=== PATIENT | female | born 1945 | race Caucasian/White ===

== ENCOUNTER 2016-10-16 10:41 | Inpatient (IN) ==
[2016-10-16] MEDS ORDERED: SODIUM CHLORIDE 0.9% 500 ML IV STA (11:39)
[2016-10-16 12:06] LABS: Basophils # 0.1 10*3/uL (0.0-0.2); Basophils % 0.3 % (0.0-0.8); Eosinophils # 0.1 10*3/uL (0.0-0.87); Eosinophils % 0.6 % (0.00-10.9); Hematocrit 33.4 VOL% (35.7-47.0); Hemoglobin 10.8 GM/DL (12.0-16.0); Immature Granulocytes % 0.7 %; Immature Granulocytes Absolute 0.11 #; Lymphocytes # 1.1 10*3/uL (1.4-4.0); Mean Corpuscular HGB Conc 32.3 GM/DL (32-36); Mean Corpuscular Hemoglobin 31 PG (27-34); Mean Corpuscular Volume 95.7 FL (87-102); Mean Platelet Volume 11.1 FL (9.6-12.0); Monocytes # 1.2 10*3/uL (0.11-0.8); Monocytes % 7.4 % (1.7-12.7); Platelet Count 267 T/CUMM (130-400); Red Blood Count 3.49 MC/CUMM (3.8-5.5); Red Cell Distribution Width 14.6 % (9.3-17.3); White Blood Count 15.5 T/CUMM (4-12)
--- NOTE | 2016-10-16 12:15 | CT Report ---
CT of the head without contrast. Indication: Mental status changes. The ventricles are normal in size and configuration. There is no mass effect, midline shift, or area of hemorrhage. No ischemic lesions are seen. The calvarium is intact. The included paranasal sinuses and the mastoid air cells are clear. Impression: No abnormality is seen. The CT exam was performed using one or more of the following dose reduction techniques: Automated exposure control, adjustment of the mA and/or kV according to patient size, or use of iterative reconstruction technique. PROCEDURE INTERPRETED AT [facility] DEPARTMENT OF RADIOLOGY Final Report Signed by: Dr. Judi Mars
--- NOTE | 2016-10-16 12:16 | XRay Report ---
Portable chest. Indication: Altered mental status. No previous study. The heart is normal in size. The pulmonary vasculature is borderline prominent. There is moderate atelectasis in the left lung base. No pneumothorax or pleural effusion. With peak hardware stabilizes a healed fracture of left proximal humerus. Impression: Moderate left basilar atelectasis. Borderline venous congestion. PROCEDURE INTERPRETED AT [facility] DEPARTMENT OF RADIOLOGY Final Report Signed by: Dr. Judi Mars
[2016-10-16 12:33] LABS: Albumin 3.3 G/DL (3.4-5.0); Bilirubin,Total 0.5 MG/DL (0.2-1.0); Osmolality,Calculated 279.5 MOS/KG (273-304); Potassium 3.6 MMOL/L (3.5-5.1); Total Protein 6.9 G/DL (6.4-8.3)
[2016-10-16 12:36] LABS: Calcium 14.4 MG/DL (8.5-10.1)
[2016-10-16] MEDS ORDERED: SODIUM CHLORIDE 0.9% 1,000 ML IV STA (12:51)
--- NOTE | 2016-10-16 12:54 | Emergency Department Note ---
Kirk Jeronimo Gwan, am scribing for, and in the presence of, Toney Gannon MD 11:21 . Teressa Jeronimo James D, MD, personally performed the services described in this documentation, ascribed by Meera Bradley in my presence, and it is both accurate and complete . Arrival - Arrival Chief Complaint: Altered Mental Status Stated Complaint: confusion/hallucination ED Nursing Triage Note: Hallucinations and confusion onset x few weeks - worse last night - family states that she has been seeing Dr Graham and Dr shah and has new DX of parkinson and was placed on new meds x 3 weeks ago Mode of Arrival: Wheelchair Limitations: Altered Mental Status Source: Patient, Family, Old Records Reviewed, RN Notes Reviewed - History of Present Illness HPI Narrative: Patient is a 71 y/o female, with a hx of dementia, visual hallucinations and Parkinson's, who presents to the ED with family with a c/o hallucinations and confusion with an onset "a few weeks" ago. During exam, pt was calm and responsive to verbal commands. Family stated that pt's sxs began to worsen last night prompting their visit to the ED today for further evaluation. Family confirmed that pt was recently dx with Parkinson's and began taking new medications Carbidopa Levodopa 3 weeks ago. Patient is followed by Dr. Graham and Dr. Shah. Family denies that pt is having auditory hallucinations or having any fever. Family confirmed that she has been battleing with insurance causing her to halt further medication attention. Onset (ago): week(s) Consistency: constant Severity: moderate Date of Last Menstrual Period: rubén Allergies/Adverse Reactions: Allergies Allergy/AdvReac Type Severity Reaction Status Date / Time Penicillins Allergy RASH Verified 10/16/16 10:49 Home Medications: Home Medications Medication Instructions Recorded Confirmed Type Carbidopa/Levodopa 25-100 [Sinemet 1 tablet PO TID 10/16/16 10/16/16 History 25-100] Citalopram [CeleXA] 40 mg PO QAM 10/16/16 10/16/16 History [place] ER Tab 450 mg PO QAM 10/16/16 10/16/16 History Losartan Potassium 100 mg PO QAM 10/16/16 10/16/16 History OLANZapine [Olanzapine] 15 mg PO QAM 10/16/16 10/16/16 History clonazePAM TAB [KlonoPIN] 0.5 mg PO TID 10/16/16 10/16/16 History Review of System - Review of System 12 point system: reviewed and no additional remarkable complaints except as stated - Review of System Constitutional: Absent: chills, fever Eyes: Absent: discharge, vision change Head/Ears/Nose/Throat: Absent: earache, nasal drainage Respiratory: Absent: cough Cardiovascular: Absent: chest pain, palpitations Gastrointestinal: Absent: abdominal pain, nausea, diarrhea Genitourinary female: Absent: dysuria Musculoskeletal: Absent: arm pain, back pain, leg pain, neck pain Neurological: Present: as per HPI, confusion Psychiatric: Present: as per HPI, visual hallucinations Medical,Surgical,& Family Hx - Medical History Cardio: History of: Hypertension Psychological: History of: Bipolar Disorder Neurology: History of: Parkinson's Disease - Social History Smoking Status: Never smoker Frequency of Alcohol Use: None Type of Drug Use: None Exam Physical Examination: GENERAL: This is a white female in no apparent distress. Patient is calm and follows all verbal commands. VITAL SIGNS: HEENT: Head is normocephalic and atraumatic. Pupils are equally round and reactive to light. Extraocular movement are intact. Oropharynx is benign with dry mucous membranes. NECK: Neck is soft and supple without tenderness. There are no masses. There is no lymphadenopathy. LUNGS: Lungs are clear to auscultation bilaterally. Chest rises symmetrically. There is no chest wall tenderness. CV: Heart is regular rate and rhythm without murmurs, rubs, or gallops. ABDOMEN: Abdomen is soft, non-tender to palpation. There are no abnormal masses palpated. There is no organomegaly. Bowel sounds are present and active. SKIN: Skin is warm and dry. No rash. EXTREMITIES: Patient has full range of motion without tenderness. There is no pedal edema. NEUROLOGIC: Awake, alert, and oriented x4. Cranial nerves II through XII are grossly intact. There are no motorsensory deficits. PSYCHIATRIC: Normal affect. Normal mood. Vital Signs: Vital Signs Temperature 98.7 F 10/16/16 11:10 Pulse Rate 65 10/16/16 13:30 Respiratory Rate 20 10/16/16 13:30 Blood Pressure 168/89 10/16/16 13:30 O2 Sat by Pulse Oximetry 96 10/16/16 13:30 Course Course Narrative: Patient was given IV fluid boluses while in the emergency department. - Consultations Consultation #1: Discussed with Dr. Shah. Patient will be admitted to his service. Initial orders written for him. Care will be assumed by him once the patient arrives on the tony. Time: 12:52 Results - Labs CBC & BMP: 10/16/16 11:54 10/16/16 11:54 Lab Results: I have reviewed the patients labs Labs: Laboratory Tests 10/16/16 11:54 WBC 15.5 H RBC 3.49 L Hgb 10.8 L Hct 33.4 L Plt Count 267 Neut % (Auto) 84.0 H Lymph % (Auto) 7.0 L Neut # (Auto) 13.0 H Lymph # (Auto) 1.1 L [place] # (Auto) 1.2 H Laboratory Tests 10/16/16 11:54 Sodium 139 Potassium 3.6 Chloride 106 Carbon Dioxide 28 BUN 21 H Creatinine 2.90 H Calcium 14.4 H* ALT 10 L Albumin 3.3 L Globulin 3.6 H Albumin/Globulin Ratio 0.9 L Laboratory Tests 10/16/16 11:54 Calcium 14.4 H* Albumin 3.3 L Laboratory Tests 10/16/16 11:54 [place] 1.5 H Laboratory Tests 10/16/16 12:54 Urine Opiates Screen Negative Ur Barbiturates Screen Negative Ur Phencyclidine Scrn Negative U Amphetamine/Methamph Negative U Benzodiazepines Scrn Negative U Cocaine Metab Screen Negative U Cannabinoids Screen Negative Laboratory Tests 10/16/16 11:39 Urine pH 7.0 Ur Specific [place] 1.008 Urine Urobilinogen < 2.0 H Urine Leukocytes Moderate H Urine RBC 1 Urine WBC 20 Hyaline Casts 1 Laboratory Tests 10/16/16 12:51 PTH Intact < 2.5 L - Diagnostic Findings Procedure: Chest x-ray: image reviewed by me (No infiltrates, no pleural effusions), CT: image reviewed by me (CT head: No acute intracranial lesion or hemorrhage.) Disposition Clinical Impression: Altered mental status, Hypercalcemia, Parkinsons disease, Renal failure Case discussed with: patient, patient's family Disposition: Still a Patient Condition: Stable Time of Disposition: 12:52
[2016-10-16 12:57] LABS: Apearance,Urine CLEAR (Clear); Bacteria,Urine Occasional /HPF (Few); Bilirubin,Urine Negative (Negative); Blood, Urine Negative (Negative); Glucose,Urine (UA) Negative (Negative); Hyaline Casts,Urine 1 /LPF (0-3); Ketones,Urine Negative (Negative); Nitrite,Urine Negative (Negative); Protein,Urine Negative; RBC,Urine 1 /HPF (0-4); Squamous Epithelial Cell,Urine Occasional /HPF (0-10); Urine Color Yellow (Yellow); Urine Specific Gravity 1.008 (1.001-1.035); Urine Urobilinogen < 2.0 EU/DL (0.2-1.0); WBC,Urine 20 /HPF (0-6)
[2016-10-16 13:11] LABS: Barbiturates Screen,Urine Negative (Negative); Benzodiazepines Screen,Urine Negative (Negative); Cannabinoid Screen,Urine Negative (Negative); Opiate Screen,Urine Negative (Negative); Phencyclidine Screen,Urine Negative (Negative)
[2016-10-16] MEDS ORDERED: ONDANSETRON 4 MG/2 ML VIAL IV PRN (14:38)
[2016-10-16] MEDS: SODIUM CHLORIDE 0.9% 1,000 ML IV SCH ×2 (14:49→23:05)
--- NOTE | 2016-10-16 17:12 | EKG Report ---
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
[2016-10-16 19:15] LABS: Calcium 12.9 MG/DL (8.5-10.1); Osmolality,Calculated 286.1 MOS/KG (273-304); Potassium 3.6 MMOL/L (3.5-5.1)
[2016-10-16] MEDS: DOCUSATE SODIUM 100 MG CAPSULE PO SCH (21:02)
[2016-10-16] MEDS: ACETAMINOPHEN 325 MG TABLET PO PRN (21:23)
[2016-10-17 05:08] LABS: Basophils # 0.1 10*3/uL (0.0-0.2); Basophils % 0.4 % (0.0-0.8); Eosinophils # 0.3 10*3/uL (0.0-0.87); Eosinophils % 2.2 % (0.00-10.9); Hematocrit 30.4 VOL% (35.7-47.0); Hemoglobin 9.6 GM/DL (12.0-16.0); Immature Granulocytes % 0.7 %; Immature Granulocytes Absolute 0.09 #; Lymphocytes # 1.2 10*3/uL (1.4-4.0); Lymphocytes % 8.9 % (21.3-54.2); Mean Corpuscular HGB Conc 31.6 GM/DL (32-36); Mean Corpuscular Hemoglobin 31 PG (27-34); Mean Corpuscular Volume 96.8 FL (87-102); Mean Platelet Volume 11.5 FL (9.6-12.0); Monocytes % 7.3 % (1.7-12.7); Neutrophils # 11.1 10*3/uL (1.4-7.4); Neutrophils % 80.5 % (38.7-73.9); Platelet Count 250 T/CUMM (130-400); Red Blood Count 3.14 MC/CUMM (3.8-5.5); Red Cell Distribution Width 14.5 % (9.3-17.3); White Blood Count 13.8 T/CUMM (4-12)
[2016-10-17 06:06] LABS: Calcium 12.4 MG/DL (8.5-10.1); Osmolality,Calculated 290.7 MOS/KG (273-304); Potassium 3.4 MMOL/L (3.5-5.1)
[2016-10-17 06:20] LABS: Albumin 2.9 G/DL (3.4-5.0); Bilirubin,Total 0.4 MG/DL (0.2-1.0); Calcium 11.9 MG/DL (8.5-10.1); Osmolality,Calculated 288.8 MOS/KG (273-304); Potassium 3.3 MMOL/L (3.5-5.1); Total Protein 5.3 G/DL (6.4-8.3)
--- NOTE | 2016-10-17 06:51 | Family Practice History&Phys ---
Assessment and Plan (1) [place] toxicity Status: Acute Assessment and plan: 10/16/2016: We are hydrating her at present. Hopefully this will have lithium levels that Current Visit: Yes (2) Hypoparathyroidism Status: Acute Assessment and plan: 10/16/2016: I suspect this is low secondary to the elevated calcium Current Visit: Yes (3) Hypokalemia Status: Acute Assessment and plan: 10/16/2016: We will supplement this as directed per protocol Current Visit: Yes (4) Altered mental status Status: Acute Assessment and plan: 10/16/2016: This is a metabolic problem/encephalopathy Current Visit: Yes (5) Hypercalcemia Status: Acute Assessment and plan: 10/16/2016: Hopefully hydration will bring this down to a high normal Current Visit: Yes (6) Parkinsons disease Status: Acute Current Visit: Yes (7) Renal failure Status: Acute Assessment and plan: 10/16/2016: I will get renal consult. She has not had an acute elevation of creatinine in the past Current Visit: Yes History of Present Illness History of present illness: Ms. Vazquez is a 71 year old female Patient is a 71 y/o female, with a hx of dementia, visual hallucinations and Parkinson's, who presents to the ED with family with a c/o confusion and hallucinations with an onset "a few weeks" ago. Unable to get a good history from her. Was unable to answer my questions, although she was calm and slowly responsive she was talking about her . No family was present, but according to the ER they stated that pt's sxs began to worsen last night prompting their visit to the ED today for further evaluation. She apparently has been recently dx with Parkinson's and began taking new medications Carbidopa Levodopa 3 weeks ago. Patient is followed by myself and Dr. Alyson Mejia. Apparently there have have been some insurance issues per ER physician. In my clinic when I saw her several months ago for the first time, it was noted that her creatinine was normal and therefore she is in acute renal failure. She also had normal BMP otherwise including calcium. Is clearly lithium toxic at this time with the above altered mental status. She also has slight leukocytosis, which could be leukemoid reaction. Her chest x-ray was normal. Will consider antibiotics in the morning if she is febrile and on the white count is still up. Her PTH is low suggesting that this is not hyperparathyroidism. We are repeating a lab in the morning I am going to go ahead and get a renal consult as mentioned and get Dr. Alyson Mejia on board. Home Medications Medication Instructions Recorded Confirmed Type Carbidopa/Levodopa 25-100 [Sinemet 1 tablet PO TID 10/16/16 10/16/16 History 25-100] Citalopram [CeleXA] 40 mg PO QAM 10/16/16 10/16/16 History [place] ER Tab 450 mg PO QAM 10/16/16 10/16/16 History Losartan Potassium 100 mg PO QAM 10/16/16 10/16/16 History OLANZapine [Olanzapine] 15 mg PO QAM 10/16/16 10/16/16 History clonazePAM TAB [KlonoPIN] 0.5 mg PO TID 10/16/16 10/16/16 History Allergies Allergy/AdvReac Type Severity Reaction Status Date / Time Penicillins Allergy RASH Verified 10/16/16 10:49 12 point system: reviewed and no additional remarkable complaints except as stated (Please see H&P. Unable to get full review of systems due to patient's mental state) Medical,Surgical,& Family Hx - Medical History Cardio: History of: Hypertension Psychological: History of: Bipolar Disorder Neurology: History of: Parkinson's Disease - Family History Family History: Reports;: Family Diabetes, Family Hypertension - Social History Smoking Status: Former smoker Frequency of Alcohol Use: Rarely Type of Drug Use: None Exam - Constitutional Vitals: Period Temp Pulse Resp BP Sys/[place] Pulse Ox Last 24 Hr 97.9 F-98.7 F 46-65 18-22 95-181/54-89 87-99 Exam: Generally fairly well-developed lady physically. She is alert but unable to give a good history. HEENT pupils are equal reactive neck is supple trachea midline [place]ia regular rate is regular at present no gallop or rub Lungs generally clear no shortness of breath is apparent Abdomen soft nondistended patient states that she is not having any abdominal when I palpate her Extremities no clubbing cyanosis edema Neurologic patient is confused in general Results - Labs CBC & BMP: 10/17/16 04:33 10/17/16 04:33
[2016-10-17 07:51] LABS: Free T4 (Free Thyroxine) 0.98 NG/DL (0.76-1.46); Phosphorous 2.7 MG/DL (2.5-4.9); Thyroid Stimulating Hormone 5.35 uIU/ml (0.358-3.74)
[2016-10-17] MEDS ORDERED: LOSARTAN 50 MG TABLET PO SCH (09:00)
[2016-10-17] MEDS: DOCUSATE SODIUM 100 MG CAPSULE PO SCH ×2 (09:54→20:21)
[2016-10-17] MEDS: SODIUM CHLORIDE 0.9% 1,000 ML IV SCH (09:54)
[2016-10-17] MEDS: CITALOPRAM 40 MG TABLET PO SCH (09:54)
[2016-10-17] MEDS: clonazePAM 0.5 MG TABLET PO SCH ×4 (09:54→20:21)
[2016-10-17] MEDS: cefTRIAXone 1,000 MG in SODIUM CHLORIDE 0.9% 100 ML IV SCH (09:54)
[2016-10-17] MEDS: ENOXAPARIN 30 MG/0.3 ML SYRINGE SUBCUT SCH (09:54)
[2016-10-17] MEDS: PANTOPRAZOLE 40 MG TABLET PO SCH (09:54)
[2016-10-17] MEDS: OLANZapine 5 MG TABLET PO SCH (10:00)
--- NOTE | 2016-10-17 10:07 | Ultrasound Report ---
Bilateral renal ultrasound. Indication: Elevated creatinine. The renal size is normal. The right kidney measures 10.7 x 4.4 x 4.8 cm. The left kidney measures 12.5 x 7.2 x 6.8 cm. The parenchymal echogenicity is normal. There is mild bilateral cortical thinning. The right kidney contains a 5 cm cyst at its upper pole. The left kidney contains a 5 cm cyst at its lower pole, and a 4 cm and 1 cm cyst at its mid pole. No hydronephrosis. Arterial flow is documented bilaterally. Impression: Cortical thinning. Bilateral renal cysts. PROCEDURE INTERPRETED AT [facility] DEPARTMENT OF RADIOLOGY Final Report Signed by: Dr. Judi Mars
--- NOTE | 2016-10-17 14:10 | Family Practice Progress Note ---
Family Practice - PN: Subj Interval history: Patient seen today. She seems to be less confused. Her vixlmxik-ar-bio is in room and we discussed situation. Did get renal to see her today. Appreciate their assistance on this case. We will also get neurology to see her to decide how we are going to handle both the Sinemet and the lithium. At this time stable hemodynamically. Her potassium is slightly low at 3.4 and we will supplement her with low-dose potassium. Went ahead and started her on Rocephin for possible UTI with an elevated leukocyte count. Creatinine has come down to about 2.4 and hopefully this trend will continue. She seems to be a little bit better hydrated at this time Exam (Progress Note) - Constitutional Vitals: Period Temp Pulse Resp BP Sys/[place] Pulse Ox Last 24 Hr 97.7 F-98.5 F 46-58 18-22 123-181/54-86 87-99 Exam: Generally fairly well-developed lady physically. She is alert and a bit more oriented today. HEENT pupils are equal reactive neck is supple trachea midline Cardia regular rate is regular at present no gallop or rub Lungs generally clear no shortness of breath is apparent Abdomen soft nondistended. Apparently has had some watery diarrhea but it was noted she had an impaction and a digital manual disimpaction was performed successfully Extremities no clubbing cyanosis edema Neurologic patient is less confused at this time Results - Labs CBC & BMP: 10/17/16 04:33 10/17/16 04:33 Assessment and Plan (1) [place] toxicity Status: Acute Assessment and plan: 10/16/2016: We are hydrating her at present. Hopefully this will have lithium levels that 10/17/2016: [place] level has come down within normal limits Current Visit: Yes (2) Hypoparathyroidism Status: Acute Assessment and plan: 10/16/2016: I suspect this is low secondary to the elevated calcium 10/17/2016: Calcium levels are slightly decreased. We are checking some other levels including vitamin D Current Visit: Yes (3) Hypokalemia Status: Acute Assessment and plan: 10/16/2016: We will supplement this as directed per protocol 10/17/2016: Supplementing potassium per protocol Current Visit: Yes (4) Altered mental status Status: Acute Assessment and plan: 10/16/2016: This is a metabolic problem/encephalopathy Current Visit: Yes (5) Hypercalcemia Status: Acute Assessment and plan: 10/16/2016: Hopefully hydration will bring this down to a high normal Current Visit: Yes (6) Parkinsons disease Status: Acute Current Visit: Yes (7) Renal failure Status: Acute Assessment and plan: 10/16/2016: I will get renal consult. She has not had an acute elevation of creatinine in the past Current Visit: Yes (8) Constipation Status: Acute Assessment and plan: 10/17/2016: Has been disimpacted manually digitally. We will give her stool softener Current Visit: Yes
[2016-10-17] MEDS ORDERED: POTASSIUM CHLORIDE RIDER 10 MEQ in PREMIX 1 EACH IV PRN (14:15)
[2016-10-17] MEDS: SODIUM CHLORIDE 0.45% 1,000 ML IV SCH ×2 (15:41→22:08)
--- NOTE | 2016-10-17 21:45 | Nephrology Consult Note ---
History of Present Illness Chief complaint: ARF, hypercalcemia History of present illness: Ms. Vazquez is a 71 year old female admitted with worsening confusion. She has a history of dementia. She was recently diagnosed with Parkinson's and started Sinemet. Her daughter states her confusion has been worse since beginning Sinemet. She has had mild nausea and p.o. intake is been less recently. She has also had constipation. She was noted to have renal insufficiency and hypercalcemia at the time of admission. She has no previous history of renal failure. Home Medications Medication Instructions Recorded Confirmed Type Carbidopa/Levodopa 25-100 [Sinemet 1 tablet PO TID 10/16/16 10/16/16 History 25-100] Citalopram [CeleXA] 40 mg PO QAM 10/16/16 10/16/16 History [place] ER Tab 450 mg PO QAM 10/16/16 10/16/16 History Losartan Potassium 100 mg PO QAM 10/16/16 10/16/16 History OLANZapine [Olanzapine] 15 mg PO QAM 10/16/16 10/16/16 History clonazePAM TAB [KlonoPIN] 0.5 mg PO TID 10/16/16 10/16/16 History Allergies Allergy/AdvReac Type Severity Reaction Status Date / Time Penicillins Allergy RASH Verified 10/16/16 10:49 Medical,Surgical,& Family Hx - Medical History Cardio: History of: Hypertension Psychological: History of: Bipolar Disorder Neurology: History of: Parkinson's Disease - Family History Family History: Reports;: Family Diabetes, Family Hypertension - Social History Smoking Status: Former smoker Frequency of Alcohol Use: Rarely Type of Drug Use: None Review of Systems ROS unobtainable: due to dementia Exam - Vital Signs Vital signs: Period Temp Pulse Resp BP Sys/[place] Pulse Ox Last 24 Hr 97.7 F-98.7 F 46-60 18-22 123-160/54-86 91-99 Exam: Gen.: She is awake but answers questions intermittently. ENT: Pupils equal round reactive to light. EOMs intact. Mucous membranes dry Neck: Supple. No JVD or bruit. Cardiovascular: Regular rate and rhythm. No murmur rub or gallop Lungs: Clear Abdomen: Soft. Nontender. Positive bowel sounds. No organomegaly Extremities: No edema Results - Labs CBC & BMP: 10/17/16 04:33 10/17/16 04:33 Assessment and Plan (1) ARF (acute renal failure) Status: Acute Assessment and plan: 71-year-old woman admitted with: * ARF. She is clinically volume depleted. Agree with IV fluid. * Hypercalcemia. She was taking calcium supplements plus vitamin D prior to admission. This history was obtained from her daughter. Supplements have been discontinued * [place] toxicity. This was mild and has improved with IV fluid * Hypertension * Dementia * Parkinson's disease Current Visit: Yes (2) Altered mental status Status: Acute Current Visit: Yes (3) Hypercalcemia Status: Acute Current Visit: Yes (4) [place] toxicity Status: Acute Current Visit: Yes (5) Parkinsons disease Status: Acute Current Visit: Yes
[2016-10-18 04:49] LABS: Basophils # 0.1 10*3/uL (0.0-0.2); Basophils % 0.5 % (0.0-0.8); Eosinophils # 0.2 10*3/uL (0.0-0.87); Eosinophils % 1.5 % (0.00-10.9); Hematocrit 30.7 VOL% (35.7-47.0); Hemoglobin 9.8 GM/DL (12.0-16.0); Immature Granulocytes % 0.7 %; Immature Granulocytes Absolute 0.11 #; Lymphocytes # 1.1 10*3/uL (1.4-4.0); Mean Corpuscular HGB Conc 31.9 GM/DL (32-36); Mean Corpuscular Hemoglobin 31 PG (27-34); Mean Corpuscular Volume 97.2 FL (87-102); Mean Platelet Volume 11.7 FL (9.6-12.0); Monocytes # 1.1 10*3/uL (0.11-0.8); Monocytes % 7.3 % (1.7-12.7); Neutrophils # 12.8 10*3/uL (1.4-7.4); Platelet Count 238 T/CUMM (130-400); Red Blood Count 3.16 MC/CUMM (3.8-5.5); Red Cell Distribution Width 14.5 % (9.3-17.3); White Blood Count 15.5 T/CUMM (4-12)
[2016-10-18 05:34] LABS: Calcium 10.8 MG/DL (8.5-10.1); Magnesium 1.8 MG/DL (1.8-2.4); Osmolality,Calculated 288.7 MOS/KG (273-304); Potassium 3.1 MMOL/L (3.5-5.1)
[2016-10-18] MEDS: SODIUM CHLORIDE 0.45% 1,000 ML IV SCH ×3 (06:13→22:10)
--- NOTE | 2016-10-18 08:07 | Family Practice Progress Note ---
Family Practice - PN: Subj Interval history: Patient apparently is much more alert today. Daughter states that she significantly improved. Vitals are stable except blood pressure slightly elevated. Her a.m. labs this a.m. improved with with a creatinine of 2.3 and a calcium at 10.8 which is significantly improved. Daughter feels that she is much more alert and has a good appetite. Potassium slightly decreased 2.1 which I will correct urine culture negative at present. Exam is otherwise stable we will continue present treatment plan Exam (Progress Note) - Constitutional Vitals: Period Temp Pulse Resp BP Sys/[place] Pulse Ox Last 24 Hr 97.1 F-98.7 F 57-68 18-22 148-157/70-73 90-98 Results - Labs CBC & BMP: 10/18/16 03:00 10/18/16 03:00
[2016-10-18] MEDS: PANTOPRAZOLE 40 MG TABLET PO SCH (09:02)
[2016-10-18] MEDS: CITALOPRAM 40 MG TABLET PO SCH (09:02)
[2016-10-18] MEDS: clonazePAM 0.5 MG TABLET PO SCH ×3 (09:02→20:19)
[2016-10-18] MEDS: DOCUSATE SODIUM 100 MG CAPSULE PO SCH ×2 (09:02→21:24)
[2016-10-18] MEDS: cefTRIAXone 1,000 MG in SODIUM CHLORIDE 0.9% 100 ML IV SCH (09:03)
[2016-10-18] MEDS: ENOXAPARIN 30 MG/0.3 ML SYRINGE SUBCUT SCH (09:03)
[2016-10-18] MEDS: OLANZapine 5 MG TABLET PO SCH ×2 (10:44→20:20)
--- NOTE | 2016-10-18 14:03 | Nephrology Progress Note ---
Nephrology - PN: Subj Interval history: Patient is resting. Family members at the bedside expressed the patient is much more interactive and as opposed to yesterday. Serum sodium is noted to be 143 and serum creatinine is down to 2.3. At this time continue current management for this patient. Exam (PN)-Nephrology - Vital Signs Vital signs: Period Temp Pulse Resp BP Sys/[place] Pulse Ox Last 24 Hr 97.1 F-98.8 F 58-69 16-20 139-183/71-83 88-98 - General Appearance General appearance: well-developed, well-nourished EENT: ATNC Neck: supple Respiratory: clear Cardiology: regular rate, regular rhythm Gastrointestinal: normoactive bowel sounds, no tenderness Musculoskeletal: no deformities - Lab 10/18/16 03:00 10/18/16 03:00 Most recent lab results Calcium 10.8 MG/DL (8.5-10.1) H 10/18/16 03:00 Phosphorus 2.7 MG/DL (2.5-4.9) 10/17/16 04:00 Magnesium 1.8 MG/DL (1.8-2.4) 10/18/16 03:00 Assessment and Plan (1) Altered mental status Status: Acute Assessment and plan: This appears to be improving. Continue to monitor. Current Visit: Yes (2) Hypercalcemia Status: Acute Assessment and plan: Serum calcium is now 10.8 which is improving. Current Visit: Yes (3) Renal failure Status: Acute Assessment and plan: Acute renal failure show signs of improvement with a creatinine now down to 2.3. Current Visit: Yes (4) [place] toxicity Status: Acute Current Visit: Yes
[2016-10-18] MEDS ORDERED: POTASSIUM CHLORIDE RIDER 10 MEQ in PREMIX 1 EACH IV PRN (14:15)
[2016-10-18 14:28] LABS: Collection Time,Urine 24 HOURS; Total Protein 24 Hr Ur Result 350 MG/24HR (0-149.1); Total Volume,Urine 3500 ML (400-2000)
[2016-10-18 14:38] LABS: Creatinine 24 Hr Urine Result 0.91 G/24HR (0.60-1.80); Creatinine Clearance Urine 24.78 ML/MIN (70-115)
[2016-10-18] MEDS: ACETAMINOPHEN 325 MG TABLET PO PRN (20:19)
[2016-10-19 05:51] LABS: Basophils # 0.1 10*3/uL (0.0-0.2); Basophils % 0.4 % (0.0-0.8); Eosinophils # 0.4 10*3/uL (0.0-0.87); Eosinophils % 2.9 % (0.00-10.9); Hematocrit 30.6 VOL% (35.7-47.0); Hemoglobin 9.8 GM/DL (12.0-16.0); Immature Granulocytes % 1.4 %; Immature Granulocytes Absolute 0.19 #; Lymphocytes # 1.4 10*3/uL (1.4-4.0); Lymphocytes % 10.2 % (21.3-54.2); Mean Corpuscular Hemoglobin 31 PG (27-34); Mean Corpuscular Volume 96.5 FL (87-102); Mean Platelet Volume 10.8 FL (9.6-12.0); Monocytes # 0.9 10*3/uL (0.11-0.8); Monocytes % 6.5 % (1.7-12.7); Neutrophils # 10.4 10*3/uL (1.4-7.4); Neutrophils % 78.6 % (38.7-73.9); Platelet Count 244 T/CUMM (130-400); Red Blood Count 3.17 MC/CUMM (3.8-5.5); Red Cell Distribution Width 14.5 % (9.3-17.3); White Blood Count 13.3 T/CUMM (4-12)
[2016-10-19] MEDS: SODIUM CHLORIDE 0.45% 1,000 ML IV SCH ×3 (06:09→20:27)
[2016-10-19 06:31] LABS: Alanine Aminotransferase 27 U/L (13-56); Albumin 2.8 G/DL (3.4-5.0); Alkaline Phosphatase 72 U/L (45-117); Aspartate Amino Transferase 17 U/L (0-37); Bilirubin,Total < 0.39 MG/DL (0.2-1.0); Blood Urea Nitrogen 14 MG/DL (7-18); Calcium 9.5 MG/DL (8.5-10.1); Glucose 125 MG/DL (74-106); Osmolality,Calculated 287.8 MOS/KG (273-304); Potassium 2.6 MMOL/L (3.5-5.1); Sodium 144 MMOL/L (136-145); Total Protein 5.4 G/DL (6.4-8.3)
[2016-10-19] MEDS: DOCUSATE SODIUM 100 MG CAPSULE PO SCH ×2 (08:51→21:07)
[2016-10-19] MEDS: CITALOPRAM 40 MG TABLET PO SCH (08:51)
[2016-10-19] MEDS: clonazePAM 0.5 MG TABLET PO SCH ×3 (08:52→21:08)
[2016-10-19] MEDS: ENOXAPARIN 30 MG/0.3 ML SYRINGE SUBCUT SCH (08:52)
[2016-10-19] MEDS: PANTOPRAZOLE 40 MG TABLET PO SCH (08:52)
[2016-10-19] MEDS: cefTRIAXone 1,000 MG in SODIUM CHLORIDE 0.9% 100 ML IV SCH (08:53)
--- NOTE | 2016-10-19 10:08 | Nephrology Progress Note ---
Nephrology - PN: Subj Interval history: Patient is resting. No acute changes. Serum creatinine is noted to be 1.9. And calcium is down to 9.5. Potassium is being supplemented with 40 mEq twice daily by mouth. Exam (PN)-Nephrology - Vital Signs Vital signs: Period Temp Pulse Resp BP Sys/[place] Pulse Ox Last 24 Hr 97.4 F-98.8 F 56-82 18-20 138-183/68-79 93-98 - General Appearance General appearance: well-developed, well-nourished EENT: ATNC Neck: supple Respiratory: clear Cardiology: regular rate, regular rhythm Gastrointestinal: normoactive bowel sounds, no tenderness Integumentary: no rash Musculoskeletal: no clubbing - Lab 10/19/16 05:40 10/19/16 05:41 Most recent lab results Calcium 9.5 MG/DL (8.5-10.1) 10/19/16 05:41 Phosphorus 2.7 MG/DL (2.5-4.9) 10/17/16 04:00 Magnesium 1.8 MG/DL (1.8-2.4) 10/18/16 03:00 Ur Total Protein 24 Hr 350 MG/24HR (0-149.1) H 10/18/16 14:11 Assessment and Plan (1) Altered mental status Status: Acute Assessment and plan: This appears to be improving. Continue to monitor. Current Visit: Yes (2) Hypercalcemia Status: Acute Assessment and plan: Serum calcium is now 9.5 which is improving. Current Visit: Yes (3) Renal failure Status: Acute Assessment and plan: Acute renal failure show signs of improvement with a creatinine now down to 1.9 Current Visit: Yes (4) [place] toxicity Status: Acute Current Visit: Yes
[2016-10-19] MEDS: POTASSIUM CHLORIDE 20 MEQ TABLET PO SCH ×2 (10:12→21:07)
--- NOTE | 2016-10-19 11:27 | Family Practice Progress Note ---
Family Practice - PN: Subj Interval history: 10/19/16 -family states that patient continues to improve. Vitals have significantly improved. Potassium is 3.5 this a.m. TSH is elevated but free T4 is in a normal range. Will let her primary care physician follow this and decide if needs further evaluation after patient improved. We will continue present treatment plan Exam (Progress Note) - Constitutional Vitals: Period Temp Pulse Resp BP Sys/[place] Pulse Ox Last 24 Hr 97.4 F-98.8 F 56-82 18-20 138-183/68-79 93-98 Results - Labs CBC & BMP: 10/21/16 07:27 10/21/16 05:19 Specialty Discharge - Follow Up or Referrals Follow up with: Girish Shah DO [Primary Care Provider] - 11/20/16 1:00 pm (11/20/2016 1pm)
--- NOTE | 2016-10-19 11:53 | Family Practice Progress Note ---
Family Practice - PN: Subj Interval history: Family thinks that patient is more stable today. Potassium is a 2.6 this a.m. patient is receiving IV and oral potassium supplementation. Creatinine is a 1.9. Patient seems more alert and is otherwise stable. We will continue present treatment plan Exam (Progress Note) - Constitutional Vitals: Period Temp Pulse Resp BP Sys/[place] Pulse Ox Last 24 Hr 97.4 F-98.8 F 56-82 18-20 138-183/68-79 93-98 Results - Labs CBC & BMP: 10/19/16 05:40 10/19/16 05:41
[2016-10-19] MEDS ORDERED: POTASSIUM CHLORIDE RIDER 10 MEQ in PREMIX 1 EACH IV PRN (14:15)
[2016-10-19] MEDS: OLANZapine 5 MG TABLET PO SCH (21:07)
[2016-10-19] MEDS: ACETAMINOPHEN 325 MG TABLET PO PRN (22:01)
[2016-10-20] MEDS: SODIUM CHLORIDE 0.45% 1,000 ML IV SCH ×3 (05:23→21:35)
[2016-10-20 05:25] LABS: Basophils % 0.4 % (0.0-0.8); Eosinophils # 0.4 10*3/uL (0.0-0.87); Eosinophils % 3.5 % (0.00-10.9); Immature Granulocytes % 0.9 %; Lymphocytes # 1.3 10*3/uL (1.4-4.0); Lymphocytes % 11.9 % (21.3-54.2); Mean Corpuscular HGB Conc 31.3 GM/DL (32-36); Mean Corpuscular Hemoglobin 31 PG (27-34); Mean Corpuscular Volume 97.6 FL (87-102); Mean Platelet Volume 11.3 FL (9.6-12.0); Monocytes # 0.9 10*3/uL (0.11-0.8); Monocytes % 8.2 % (1.7-12.7); Neutrophils # 8.1 10*3/uL (1.4-7.4); Neutrophils % 75.1 % (38.7-73.9); Platelet Count 256 T/CUMM (130-400); Red Blood Count 3.28 MC/CUMM (3.8-5.5); White Blood Count 10.7 T/CUMM (4-12)
--- NOTE | 2016-10-20 08:36 | Family Practice Progress Note ---
Family Practice - PN: Subj Interval history: Patient seen today. She seems to be less confused. Her [id number]-peg is in room and we discussed situation. Did get renal to see her today. Appreciate their assistance on this case. We will also get neurology to see her to decide how we are going to handle both the Sinemet and the lithium. At this time stable hemodynamically. Her potassium is slightly low at 3.4 and we will supplement her with low-dose potassium. Went ahead and started her on Rocephin for possible UTI with an elevated leukocyte count. Creatinine has come down to about 2.4 and hopefully this trend will continue. She seems to be a little bit better hydrated at this time 10/20/2016: Patient seen, [id number] in the room who is her caregiver. States that she is doing some better but still very weak. We are holding some of her medications, as above. Her potassium is up to 3.5 which is somewhat improved. Still giving her fluids. Goal today is DC [place], get PT OT. Patient may need a swing bed and will hopefully schedule this for tomorrow the next day. Her calcium has come down to normal but on the recheck her lab tomorrow. In addition her TSH is high so I am going to start low-dose Synthroid to see if we can improve her thyroid status. Exam (Progress Note) - Constitutional Vitals: Period Temp Pulse Resp BP Sys/[place] Pulse Ox Last 24 Hr 96.4 F-99.1 F 56-65 18-24 124-157/51-84 97-99 Exam: Generally fairly well-developed lady physically. She arouses but somewhat lethargic. HEENT pupils are equal reactive neck is supple trachea midline Cardia regular rate is regular at present no gallop or rub Lungs generally clear no shortness of breath is apparent Abdomen soft nondistended. Still having some constipation per qbnflwci-lg-[id number] at times Extremities no clubbing cyanosis edema Neurologic patient is less confused at this time Results - Labs CBC & BMP: 10/20/16 04:57 10/19/16 15:54 Assessment and Plan (1) [place] toxicity Status: Acute Assessment and plan: 10/16/2016: We are hydrating her at present. Hopefully this will have lithium levels that 10/17/2016: [place] level has come down within normal limits Current Visit: Yes (2) Hypoparathyroidism Status: Acute Assessment and plan: 10/16/2016: I suspect this is low secondary to the elevated calcium 10/17/2016: Calcium levels are slightly decreased. We are checking some other levels including vitamin D 10/20/2016: This is resolving with hydration and holding medications Current Visit: Yes (3) Hypokalemia Status: Acute Assessment and plan: 10/16/2016: We will supplement this as directed per protocol 10/17/2016: Supplementing potassium per protocol 10/20/2016: K is up to 3.5 we will continue supplementing as necessary Current Visit: Yes (4) Altered mental status Status: Acute Assessment and plan: 10/16/2016: This is a metabolic problem/encephalopathy 10/20/2016: This is slowly improving Current Visit: Yes (5) Hypercalcemia Status: Acute Assessment and plan: 10/16/2016: Hopefully hydration will bring this down to a high normal Current Visit: Yes (6) Parkinsons disease Status: Acute Current Visit: Yes (7) Renal failure Status: Acute Assessment and plan: 10/16/2016: I will get renal consult. She has not had an acute elevation of creatinine in the past Current Visit: Yes (8) Constipation Status: Acute Assessment and plan: 10/17/2016: Has been disimpacted manually digitally. We will give her stool softener Current Visit: Yes
[2016-10-20] MEDS: POTASSIUM CHLORIDE 20 MEQ TABLET PO SCH ×2 (08:40→21:36)
[2016-10-20] MEDS: PANTOPRAZOLE 40 MG TABLET PO SCH (08:40)
[2016-10-20] MEDS: clonazePAM 0.5 MG TABLET PO SCH ×3 (08:40→21:36)
[2016-10-20] MEDS: cefTRIAXone 1,000 MG in SODIUM CHLORIDE 0.9% 100 ML IV SCH (08:40)
[2016-10-20] MEDS: CITALOPRAM 40 MG TABLET PO SCH (08:40)
[2016-10-20] MEDS: ENOXAPARIN 30 MG/0.3 ML SYRINGE SUBCUT SCH (08:40)
[2016-10-20] MEDS: DOCUSATE SODIUM 100 MG CAPSULE PO SCH ×2 (08:40→21:36)
[2016-10-20] MEDS: DESITIN 4OZ/NYSTATIN 15 GRAM MIXTURE PASTE TOP SCH ×2 (11:42→20:48)
[2016-10-20] MEDS ORDERED: POLYETHYLENE GLYCOL POWDER 17 GM PACK PO PRN (15:30)
--- NOTE | 2016-10-20 16:48 | Neurology Consult Note ---
History of Present Illness History of present illness: Patient is a 71 y/o female, with a hx of dementia, visual hallucinations and Parkinson's, history of questionable schizophrenia who presents to the ED with family with a c/o confusion and hallucinations with an onset "a few weeks" ago. Patient is a poor historian and history basically obtained from the chart. that pt's sxs began to worsen last night prompting their visit to the ED today for further evaluation. She apparently has been recently dx with Parkinson's and began taking new medications Carbidopa Levodopa 3 weeks ago. She was recommended to go to inpatient rehabilitation. Apparently there have have been some insurance issues. She was found to have high BUN/creatinine. She was also found to have high calcium level. She was found to have lithium toxic at this time with the above altered mental status. Her chest x-ray was normal. Will consider antibiotics in the morning if she is febrile and on the white count is still up. Her PTH is low suggesting that this is not hyperparathyroidism. She saw Dr. Piper and her labs looks better. However she is quite bradykinetic Home Medications Medication Instructions Recorded Confirmed Type Carbidopa/Levodopa 25-100 [Sinemet 1 tablet PO TID 10/16/16 10/16/16 History 25-100] Citalopram [CeleXA] 40 mg PO QAM 10/16/16 10/16/16 History [place] [facility] Tab 450 mg PO QAM 10/16/16 10/16/16 History Losartan Potassium 100 mg PO QAM 10/16/16 10/16/16 History OLANZapine [Olanzapine] 15 mg PO QPM 10/16/16 10/18/16 History clonazePAM TAB [KlonoPIN] 0.5 mg PO TID 10/16/16 10/16/16 History Allergies Allergy/AdvReac Type Severity Reaction Status Date / Time Penicillins Allergy RASH Verified 10/16/16 10:49 12 point system: reviewed and no additional remarkable complaints except as stated Medical,Surgical,& Family Hx - Medical History Cardio: History of: Hypertension Psychological: History of: Bipolar Disorder Neurology: History of: Parkinson's Disease - Family History Family History: Reports;: Family Diabetes, Family Hypertension - Social History Smoking Status: Former smoker Frequency of Alcohol Use: Rarely Type of Drug Use: None Exam - Constitutional Vitals: Period Temp Pulse Resp BP Sys/[place] Pulse Ox Last 24 Hr 97 F-98.0 F 56-68 20-24 124-152/51-84 94-99 Exam: GENERAL: Patient is in no acute distress. NECK: Neck is supple. There is no JVD. No carotid bruits present. No thyroid masses. CVS: First and second heart sounds are normal. There is no S3 present. Regular rate and rhythm. RESPIRATORY: Lungs are clear to auscultation without any rales or rhonchi. ABDOMEN: Soft and non-tender. Bowel sounds are present. There is no hepatosplenomegaly. EXT: There is no palpable edema. Peripheral pulses are present. Skin: No rashes Central Nervous system: General: Alert, awake Speech: Fluent Comprehension: Intact and normal Facial expressions: Normal Cranial Nerves: CN1/Olfactory: Normal CN II/ Optic: Normal, Visual Tee unreliable CN III, and : HELEN & EOMI CN V: Normal & intact CN VII: face is symmetric CNVIII: Normal CN XI/X/XI/XII: Intact and Normal Motor: Bilateral cogwheel rigidity and bradykinesia Strength in the right 3/5 Strength in the left 3/5 Sensory: Unreliable Reflexes: 1+ and symmetrical Cerebellar function: Cannot be assessed Toes: Equivocal Gait: Not tested at this Results - Labs CBC & BMP: 10/20/16 04:57 10/19/16 15:54 Assessment and Plan (1) Parkinsons disease Status: Acute Assessment and plan: I would like to put her back on Sinemet smaller dose and see how she does if it is okay with Dr. Piper I believe insurance has approved inpatient rehabilitation and she can go to [facility] when okay with PCP Current Visit: Yes (2) [place] toxicity Status: Acute Assessment and plan: I would recommend she be evaluated by a psychiatrist before to put her back on lithium Thank you for the consult Current Visit: Yes
[2016-10-20] MEDS: ACETAMINOPHEN 325 MG TABLET PO PRN (16:50)
[2016-10-20] MEDS: OLANZapine 5 MG TABLET PO SCH (21:36)
[2016-10-20] MEDS: CARBIDOPA/LEVODOPA 25-100 MG TABLET PO SCH (21:37)
--- NOTE | 2016-10-20 23:10 | Nephrology Progress Note ---
Nephrology - PN: Subj Interval history: She is more alert now than last week. She answers simple questions. Her family states that although she is more alert she has been confused. She denies shortness of breath. No GI symptoms Exam (PN)-Nephrology - Vital Signs Vital signs: Period Temp Pulse Resp BP Sys/[place] Pulse Ox Last 24 Hr 97 F-98.0 F 56-68 20-24 124-157/51-85 94-99 Exam: ENT: Normal Cardiovascular: Regular rate and rhythm. No murmur rub or gallop Lungs: Clear Extremities: No edema - Lab 10/20/16 04:57 10/19/16 15:54 Most recent lab results Calcium 9.5 MG/DL (8.5-10.1) 10/19/16 05:41 Phosphorus 2.7 MG/DL (2.5-4.9) 10/17/16 04:00 Magnesium 1.8 MG/DL (1.8-2.4) 10/18/16 03:00 Ur Total Protein 24 Hr 350 MG/24HR (0-149.1) H 10/18/16 14:11 Assessment and Plan (1) ARF (acute renal failure) Status: Acute Assessment and plan: 71-year-old woman admitted with: * ARF. Renal function improved with IV fluid. Ultrasound shows some cortical thinning. She likely has mild chronic renal insufficiency * Hypercalcemia. Resolved * [place] toxicity. Resolved * Hypertension * Dementia * Parkinson's disease. She has been evaluated by neurology today. From my standpoint, it is safe to resume lithium or Sinemet, as indicated Current Visit: Yes (2) Altered mental status Status: Acute Current Visit: Yes (3) Hypercalcemia Status: Acute Current Visit: Yes (4) [place] toxicity Status: Acute Current Visit: Yes (5) Parkinsons disease Status: Acute Current Visit: Yes
[2016-10-21] MEDS: SODIUM CHLORIDE 0.45% 1,000 ML IV SCH (05:25)
[2016-10-21] MEDS ORDERED: LEVOTHYROXINE 50 MCG TABLET PO SCH (07:00)
[2016-10-21 07:06] LABS: Albumin 2.9 G/DL (3.4-5.0); Bilirubin,Total 0.6 MG/DL (0.2-1.0); Osmolality,Calculated 284.7 MOS/KG (273-304); Potassium 3.9 MMOL/L (3.5-5.1); Total Protein 5.8 G/DL (6.4-8.3)
[2016-10-21 07:45] LABS: Basophils # 0.1 10*3/uL (0.0-0.2); Basophils % 0.4 % (0.0-0.8); Eosinophils # 0.3 10*3/uL (0.0-0.87); Eosinophils % 2.3 % (0.00-10.9); Hematocrit 31.8 VOL% (35.7-47.0); Hemoglobin 10.1 GM/DL (12.0-16.0); Immature Granulocytes % 0.8 %; Immature Granulocytes Absolute 0.09 #; Lymphocytes % 8.4 % (21.3-54.2); Mean Corpuscular HGB Conc 31.8 GM/DL (32-36); Mean Corpuscular Hemoglobin 31 PG (27-34); Mean Corpuscular Volume 96.1 FL (87-102); Mean Platelet Volume 10.6 FL (9.6-12.0); Monocytes # 0.9 10*3/uL (0.11-0.8); Monocytes % 7.3 % (1.7-12.7); Neutrophils # 9.7 10*3/uL (1.4-7.4); Neutrophils % 80.8 % (38.7-73.9); Platelet Count 261 T/CUMM (130-400); Red Blood Count 3.31 MC/CUMM (3.8-5.5); Red Cell Distribution Width 14.9 % (9.3-17.3)
[2016-10-21] MEDS: DESITIN 4OZ/NYSTATIN 15 GRAM MIXTURE PASTE TOP SCH (08:40)
[2016-10-21] MEDS ORDERED: ENOXAPARIN 40 MG/0.4 ML SYRINGE SUBCUT SCH (09:00)
[2016-10-21] MEDS: CARBIDOPA/LEVODOPA 25-100 MG TABLET PO SCH ×2 (10:03→15:41)
[2016-10-21] MEDS: CITALOPRAM 40 MG TABLET PO SCH (10:03)
[2016-10-21] MEDS: PANTOPRAZOLE 40 MG TABLET PO SCH (10:03)
[2016-10-21] MEDS: DOCUSATE SODIUM 100 MG CAPSULE PO SCH (10:03)
[2016-10-21] MEDS: POTASSIUM CHLORIDE 20 MEQ TABLET PO SCH (10:05)
[2016-10-21] MEDS: cefTRIAXone 1,000 MG in SODIUM CHLORIDE 0.9% 100 ML IV SCH (10:05)
[2016-10-21] MEDS: clonazePAM 0.5 MG TABLET PO SCH ×2 (10:05→15:42)
--- NOTE | 2016-10-21 10:42 | Nephrology Progress Note ---
Nephrology - PN: Subj Interval history: She is alert and talkative today. She denies shortness of breath or GI symptoms. Exam (PN)-Nephrology - Vital Signs Vital signs: Period Temp Pulse Resp BP Sys/[place] Pulse Ox Last 24 Hr 96.9 F-98.7 F 68-83 16-22 144-179/63-88 20-96 Exam: ENT: Normal Cardiovascular: Regular rate and rhythm. No murmur rub or gallop Lungs: Clear Extremities: No edema - Lab 10/21/16 07:27 10/21/16 05:19 Most recent lab results Calcium 8.0 MG/DL (8.5-10.1) L 10/21/16 05:19 Phosphorus 2.7 MG/DL (2.5-4.9) 10/17/16 04:00 Magnesium 1.8 MG/DL (1.8-2.4) 10/18/16 03:00 Ur Total Protein 24 Hr 350 MG/24HR (0-149.1) H 10/18/16 14:11 Assessment and Plan (1) ARF (acute renal failure) Status: Acute Assessment and plan: 71-year-old woman admitted with: * ARF. Renal function has improved further. IV rate will be decreased * Hypercalcemia. Resolved * [place] toxicity. Resolved * Hypertension * Dementia * Parkinson's disease. She has been evaluated by neurology. From my standpoint , it is safe to resume lithium or Sinemet, as indicated Current Visit: Yes (2) Altered mental status Status: Acute Current Visit: Yes (3) Hypercalcemia Status: Acute Current Visit: Yes (4) [place] toxicity Status: Acute Current Visit: Yes (5) Parkinsons disease Status: Acute Current Visit: Yes
--- NOTE | 2016-10-21 11:40 | Discharge Summary ---
Hospital Course - Hospital Course Hospital Course: Patient came in with some dementia and visual hallucinations as well as Parkinson's disease and elevated creatinine. She had some confusion which started a few weeks prior to admission. Was unable to at the time answer questions very much and had family in to help. Had recently been started on Sinemet for Parkinson's and she was on lithium it was noted that she was lithium toxic, mildly. I did get renal to see her for this reason as well as the fact her creatinine was elevated about 4; also got neurology to see your to evaluate lithium status. She slowly improved with hydration and holding of lithium and became more alert. She did have elevation leukocytosis but this was felt to be leukemoid reaction. Calcium was elevated on admission but this came down again with hydration. At this time she is still somewhat weak but we are going to try to get her home with home health and from that point try to get her into either [facility] or into rehab depending on what she qualifies for and/or what her needs are at that time. Have discussed the situation with her daughter, Roz; she is in full agreement with the current plan that we have going. - Time spent with patient Time with patient DS: Greater than 30 minutes (lengthy discussion with family regarding ability to go to [facility] has to be approved per insurance) Diagnosis - Discharge Diagnosis (1) [place] toxicity Status: Resolved (2) Hypoparathyroidism Status: Resolved (3) Hypokalemia Status: Resolved (4) Altered mental status Status: Resolved (5) Hypercalcemia Status: Resolved (6) Parkinsons disease Status: Chronic (7) Renal failure Status: Chronic (8) Constipation Status: Resolved Specialty Discharge - Follow Up or Referrals Follow up with: Girish Shah DO [Primary Care Provider] - 11/20/16 1:00 pm (11/20/2016 1pm) Discharge Plan - Discharge Data Disposition: Home Health Service Condition at Discharge: Stable Discharge Diet: advance to your usual diet Activity: increase activity as tolerated Hygiene: no restrictions Weight Bearing at Discharge: weight bear as tolerated Driving: other (doesn't) Contact your physician if you experience:: Nausea/Vomiting, Shortness of breath - Discharge Medications New Carbidopa/Levodopa 25-100 [Sinemet 25-100] 0.5 tablet PO TID tablet cloNIDine 0.1 MG/24 HR PATCH [Ogwpdvva-VUC-9 Patch] 1 patch TRANSDERM Q7DAY # 10 patch Levothyroxine Tab [Synthroid Tab] 50 mcg PO DAILY@0700 #30 tablet Polyethylene Glycol Powder [Miralax] 17 gm PO DAILY PRN PRN Reason: Constipation [place] ER Tab 300 mg PO DAILY #30 tablet Potassium Chloride Cap/Tab [K Dur] 20 meq PO BID #60 tablet Continue OLANZapine [Olanzapine] 15 mg PO QPM Citalopram [CeleXA] 40 mg PO QAM clonazePAM TAB [KlonoPIN] 0.5 mg PO TID Discontinued [place] [facility] Tab 450 mg PO QAM Carbidopa/Levodopa 25-100 [Sinemet 25-100] 1 tablet PO TID No Action Losartan Potassium 100 mg PO QAM - Follow Up or Referral Follow Up: Girish Shah DO [Primary Care Provider] - 11/20/16 1:00 pm (11/20/2016 1pm) - Forms/Instructions Exam - Constitutional Vitals: Period Temp Pulse Resp BP Sys/[place] Pulse Ox Last 24 Hr 96.9 F-98.7 F 68-83 16-22 144-179/63-88 20-96 Discharge Results Labs on day of discharge: Labs from last 24 hours 10/21/16 10/21/16 07:27 05:19 WBC 12.0 RBC 3.31 L Hgb 10.1 L Hct 31.8 L MCV 96.1 MCH 31 MCHC 31.8 L RDW 14.9 Plt Count 261 MPV 10.6 Neut % (Auto) 80.8 H Lymph % (Auto) 8.4 L [place] % (Auto) 7.3 Eos % (Auto) 2.3 Baso % (Auto) 0.4 Neut # (Auto) 9.7 H Lymph # (Auto) 1.0 L [place] # (Auto) 0.9 H Eos # (Auto) 0.3 Baso # (Auto) 0.1 Immature Gran % 0.8 Nucleated RBC % 0.0 Immature Gran # 0.09 Nucleated RBCs # 0.00 Sodium 145 Potassium 3.9 Chloride 112 H Carbon Dioxide 25 Anion Gap 11.9 BUN 8 Creatinine 1.10 H GFR Calculation 57 BUN/Creatinine Ratio 7.00 Glucose 80 Calculated Osmolality 284.7 Calcium 8.0 L Total Bilirubin 0.60 AST 24 ALT 13 Alkaline Phosphatase 80 Total Protein 5.8 L Albumin 2.9 L Globulin 2.9 Albumin/Globulin Ratio 1.0 L DS: Provider Date of admission: 10/16/16 12:55 Primary care physician: Girish Shah DO Attending physician on admission: Girish Shah DO Consults: 10/16/16 14:38 Consult to Case Mgmt/Social Srvs [CONS] Routine Reason for Case Mgmt/Social Srvs: Discharge Planning Consult to Physician [CONS] Routine Comment: pt known to you with parkinsons Consulting Provider: Lul Graham Consult Notification Comment: DR GRAHAM IS ON BYPASS 10/17/16 07:06 Consult to Physician [CONS] Routine Comment: Consulting Provider: 10/17/16 07:07 Consult to Physician [CONS] Routine Comment: acute increase in creatinine,hypercalcemia Consulting Provider: Addy Ppier 10/20/16 08:24 PT [Consult to Physical Therapy] [CONS] Routine Reason for Physical Therapy: Evaluate and Treat 10/20/16 08:33 Consult to Occupational Therapy [CONS] Routine Reason for Occupational Therapy: Evaluate and Treat Discharging clinician: Girish Shah DO
[2016-10-21 15:59] VITALS: BP 163/94
[2016-10-24] MEDS ORDERED: cloNIDine 0.1 MG/24 HR PATCH TRANSDERM SCH (09:00)
== END 2016-10-21 16:10 | DRG 682 ==
LOC: N.ED 10:41 → N.EDINP 12:55 → N.2E 14:02
PROVIDERS: ADMIT Family Medicine; ATTEND Family Medicine

== ENCOUNTER 2019-05-26 11:44 | Observation (INO) ==
[2019-05-26] MEDS ORDERED: SODIUM CHLORIDE 0.9% 1,000 ML IV STA (12:08)
[2019-05-26 13:06] LABS: Apearance,Urine CLEAR (Clear); Bilirubin,Urine Negative (Negative); Blood, Urine Negative (Negative); Glucose,Urine (UA) Negative (Negative); Ketones,Urine 5 mg/dL (Negative); Mucus,Urine Occasional /LPF (Occasional); Nitrite,Urine Negative (Negative); Protein,Urine Negative; RBC,Urine 1 /HPF (0-4); Urine Color Yellow (Yellow); Urine Specific Gravity 1.011 (1.001-1.035); Urine Urobilinogen < 2.0 EU/DL (0.2-1.0); WBC,Urine 1 /HPF (0-6)
[2019-05-26 13:10] LABS: Basophils # 0.1 10*3/uL (0.0-0.2); Basophils % 0.7 % (0.0-0.8); Eosinophils # 0.1 10*3/uL (0.0-0.87); Eosinophils % 1.1 % (0.00-10.9); Hematocrit 33.6 VOL% (35.7-47.0); Hemoglobin 10.5 GM/DL (12.0-16.0); Immature Granulocytes % 0.4 %; Immature Granulocytes Absolute 0.03 #; Lymphocytes # 1.2 10*3/uL (1.4-4.0); Lymphocytes % 14.6 % (21.3-54.2); Mean Corpuscular HGB Conc 31.3 GM/DL (32-36); Mean Corpuscular Volume 96.3 FL (87-102); Monocytes % 8.9 % (1.7-12.7); Neutrophils % 74.3 % (38.7-73.9); Platelet Count 372 T/CUMM (130-400); Red Blood Count 3.49 MC/CUMM (3.8-5.5); Red Cell Distribution Width 13.8 % (9.3-17.3); White Blood Count 8.2 T/CUMM (4-12)
[2019-05-26 13:32] LABS: PT Patient Result 10.9 SECS (9.6-12.2)
[2019-05-26 13:36] LABS: Alanine Aminotransferase < 6 U/L (13-56); Albumin 2.7 G/DL (3.4-5.0); Alkaline Phosphatase 84 U/L (45-117); Aspartate Amino Transferase 15 U/L (0-37); Blood Urea Nitrogen 19 MG/DL (7-18); Calcium 8.4 MG/DL (8.5-10.1); Estimated Glom Filtration Rate 85 ML/MIN; Glucose 90 MG/DL (74-106); Osmolality,Calculated 269.2 MOS/KG (273-304)
[2019-05-26] MEDS ORDERED: ONDANSETRON 4 MG/2 ML VIAL IV PRN (16:17)
[2019-05-26] MEDS ORDERED: ACETAMINOPHEN 325 MG TABLET PO PRN (16:17)
[2019-05-26] MEDS: SODIUM CHLORIDE 0.9% 1,000 ML IV SCH (16:42)
[2019-05-26] MEDS ORDERED: POTASSIUM CHLORIDE 20 MEQ TABLET PO ONE (17:35)
[2019-05-26] MEDS ORDERED: MAGNESIUM CHLORIDE 64 MG TABLET PO ONE (17:36)
[2019-05-26] MEDS ORDERED: QUEtiapine 25 MG TABLET PO SCH (21:00)
[2019-05-26] MEDS ORDERED: PROPRANOLOL 10 MG TABLET PO SCH (21:00)
[2019-05-26] MEDS ORDERED: MELATONIN 3 MG TABLET PO SCH (21:00)
[2019-05-26] MEDS: rOPINIRole 0.25 MG TABLET PO SCH (21:29)
[2019-05-26] MEDS: DOCUSATE SODIUM 100 MG CAPSULE PO SCH (21:29)
[2019-05-26] MEDS: tiZANidine 4 MG TABLET PO SCH (21:29)
[2019-05-26] MEDS: CARBIDOPA/LEVODOPA 25-100 MG TABLET PO SCH (21:32)
[2019-05-26] MEDS: OXYBUTYNIN 5 MG TABLET PO SCH (21:34)
[2019-05-26] MEDS: SODIUM CHLORIDE 1 GM TABLET PO SCH (21:34)
[2019-05-27] MEDS: SODIUM CHLORIDE 0.9% 1,000 ML IV SCH ×2 (01:02→09:08)
[2019-05-27] MEDS ORDERED: FERROUS SULFATE 325 MG TABLET PO SCH (09:00)
[2019-05-27] MEDS ORDERED: CITALOPRAM 40 MG TABLET PO SCH (09:00)
[2019-05-27] MEDS ORDERED: QUEtiapine 25 MG TABLET PO SCH (09:00)
[2019-05-27] MEDS ORDERED: MONTELUKAST 10 MG TABLET PO SCH (09:00)
[2019-05-27] MEDS ORDERED: amLODIPine 5 MG TABLET PO SCH (09:00)
[2019-05-27] MEDS ORDERED: PANTOPRAZOLE 40 MG TABLET PO SCH (09:00)
[2019-05-27] MEDS ORDERED: lamoTRIgine 25 MG TABLET PO SCH (09:00)
[2019-05-27] MEDS: rOPINIRole 0.25 MG TABLET PO SCH (09:14)
[2019-05-27] MEDS: SODIUM CHLORIDE 1 GM TABLET PO SCH (09:14)
[2019-05-27] MEDS: CARBIDOPA/LEVODOPA 25-100 MG TABLET PO SCH (09:14)
[2019-05-27] MEDS: tiZANidine 4 MG TABLET PO SCH (09:15)
[2019-05-27] MEDS: DOCUSATE SODIUM 100 MG CAPSULE PO SCH (09:15)
[2019-05-27] MEDS: OXYBUTYNIN 5 MG TABLET PO SCH (09:16)
[2019-05-27 12:45] VITALS: BP 145/83
== END 2019-05-27 14:28 ==
LOC: EDUNIT# → N.ED 11:44 → N.EDINP 11:44 → N.2W 16:04
PROVIDERS: ADMIT Family Medicine; ATTEND Family Medicine

== ENCOUNTER 2021-10-31 22:28 | Inpatient (IN) ==
[2021-10-31] MEDS ORDERED: DIAZEPAM 10 MG/2 ML SYRINGE IV STA (23:07)
[2021-10-31] MEDS ORDERED: SODIUM CHLORIDE 0.9% 1,000 ML IV STA (23:07)
[2021-11-01 00:12] LABS: Alanine Aminotransferase 12 U/L (13-56); Albumin 3.3 G/DL (3.4-5.0); Alkaline Phosphatase 71 U/L (45-117); Aspartate Amino Transferase 14 U/L (0-37); Bilirubin,Total < 0.39 MG/DL (0.20-1.00); Blood Urea Nitrogen 20 MG/DL (7-18); Calcium 8.9 MG/DL (8.5-10.1); Carbon Dioxide 30 MMOL/L (21-32); Chloride 107 MMOL/L (98-107); Glucose 98 MG/DL (74-106); Osmolality,Calculated 281.4 MOS/KG (273-304); Potassium 3.6 MMOL/L (3.5-5.1); Sodium 140 MMOL/L (136-145); Total Protein 6.2 G/DL (6.4-8.2)
[2021-11-01 00:33] LABS: Basophils # 0.1 10*3/uL (0.0-0.2); Basophils % 0.9 % (0.0-0.8); Eosinophils # 0.2 10*3/uL (0.0-0.87); Eosinophils % 2.1 % (0.00-10.9); Hematocrit 36.8 VOL% (35.7-47.0); Immature Granulocytes % 0.4 %; Immature Granulocytes Absolute 0.03 #; Lymphocytes # 1.6 10*3/uL (1.4-4.0); Lymphocytes % 18.9 % (21.3-54.2); Mean Corpuscular HGB Conc 32.6 GM/DL (32-36); Mean Corpuscular Volume 98.4 FL (87-102); Mean Platelet Volume 10.6 FL (9.6-12.0); Monocytes # 0.9 10*3/uL (0.11-0.8); Monocytes % 10.9 % (1.7-12.7); Neutrophils % 66.8 % (38.7-73.9); Platelet Count 242 T/CUMM (130-400); Red Blood Count 3.74 MC/CUMM (3.8-5.5); Red Cell Distribution Width 13.7 % (9.3-17.3); White Blood Count 8.2 T/CUMM (4-12)
[2021-11-01 01:19] LABS: Bacteria,Urine Occasional /HPF (Few); Mucus,Urine Occasional /LPF (Occasional); RBC,Urine 1 /HPF (0-4); Squamous Epithelial Cell,Urine Occasional /HPF (0-10)
[2021-11-01 01:20] LABS: Bilirubin,Urine Negative (Negative); Blood, Urine Negative (Negative); Glucose,Urine (UA) Negative (Negative); Ketones,Urine Negative (Negative); Nitrite,Urine Negative (Negative); Protein,Urine Negative (Negative); Urine Appearance Clear (Clear); Urine Color Yellow (Yellow); Urine Urobilinogen 0.2 eU/dL (<2.0)
[2021-11-01] MEDS ORDERED: ONDANSETRON 4 MG/2 ML VIAL IV PRN (01:26)
[2021-11-01 01:27] LABS: Barbiturates Screen,Urine Negative (Negative); Benzodiazepines Screen,Urine Negative (Negative); Cannabinoid Screen,Urine Negative (Negative); Opiate Screen,Urine Negative (Negative); Phencyclidine Screen,Urine Negative (Negative)
[2021-11-01] MEDS ORDERED: METHOCARBAMOL 750 MG TABLET PO PRN (02:16)
[2021-11-01] MEDS: CLORAZEPATE 3.75 MG TABLET PO PRN ×3 (03:03→17:35)
[2021-11-01] MEDS: rOPINIRole 0.25 MG TABLET PO SCH ×3 (08:59→20:45)
[2021-11-01] MEDS: ENOXAPARIN 40 MG/0.4 ML SYRINGE SUBCUT SCH (08:59)
[2021-11-01] MEDS: CITALOPRAM 40 MG TABLET PO SCH (09:00)
[2021-11-01] MEDS: amLODIPine 5 MG TABLET PO SCH (09:00)
[2021-11-01] MEDS: PANTOPRAZOLE 40 MG TABLET PO SCH (09:00)
[2021-11-01] MEDS: CARBIDOPA/LEVODOPA 25-100 MG TABLET PO SCH ×3 (09:04→17:12)
[2021-11-01] MEDS: lamoTRIgine 100 MG TABLET PO SCH (09:06)
[2021-11-01] MEDS: traZODone 50 MG TABLET PO PRN (20:45)
[2021-11-02] MEDS: ENOXAPARIN 40 MG/0.4 ML SYRINGE SUBCUT SCH (09:10)
[2021-11-02] MEDS: lamoTRIgine 100 MG TABLET PO SCH (09:11)
[2021-11-02] MEDS: rOPINIRole 0.25 MG TABLET PO SCH ×3 (09:11→20:10)
[2021-11-02] MEDS: PANTOPRAZOLE 40 MG TABLET PO SCH (09:11)
[2021-11-02] MEDS: CITALOPRAM 40 MG TABLET PO SCH (09:12)
[2021-11-02] MEDS: amLODIPine 5 MG TABLET PO SCH (09:12)
[2021-11-02] MEDS: CARBIDOPA/LEVODOPA 25-100 MG TABLET PO SCH ×3 (09:13→17:10)
[2021-11-02] MEDS: DOCUSATE SODIUM 100 MG CAPSULE PO SCH ×2 (09:34→20:10)
[2021-11-02] MEDS: CLORAZEPATE 3.75 MG TABLET PO PRN ×2 (09:37→17:13)
[2021-11-02] MEDS: POLYETHYLENE GLYCOL POWDER 17 GM PACK PO SCH (09:38)
[2021-11-02] MEDS: SODIUM CHLORIDE 0.9% 1,000 ML IV SCH (10:53)
[2021-11-02] MEDS: traZODone 50 MG TABLET PO PRN (20:10)
[2021-11-03] MEDS: SODIUM CHLORIDE 0.9% 1,000 ML IV SCH (00:38)
[2021-11-03 06:15] LABS: Basophils # 0.1 10*3/uL (0.0-0.2); Basophils % 0.9 % (0.0-0.8); Eosinophils # 0.2 10*3/uL (0.0-0.87); Eosinophils % 3.6 % (0.00-10.9); Hematocrit 34.2 VOL% (35.7-47.0); Immature Granulocytes % 0.3 %; Immature Granulocytes Absolute 0.02 #; Lymphocytes # 1.4 10*3/uL (1.4-4.0); Lymphocytes % 23.8 % (21.3-54.2); Mean Corpuscular HGB Conc 31.9 GM/DL (32-36); Mean Corpuscular Volume 101.5 FL (87-102); Mean Platelet Volume 10.7 FL (9.6-12.0); Monocytes # 0.7 10*3/uL (0.11-0.8); Neutrophils % 59.4 % (38.7-73.9); Platelet Count 192 T/CUMM (130-400); Red Blood Count 3.37 MC/CUMM (3.8-5.5); Red Cell Distribution Width 13.8 % (9.3-17.3); White Blood Count 5.8 T/CUMM (4-12)
[2021-11-03 06:25] LABS: Hemoglobin 10.9 GM/DL (12.0-16.0)
[2021-11-03 06:35] LABS: Alanine Aminotransferase 17 U/L (13-56); Albumin 2.7 G/DL (3.4-5.0); Alkaline Phosphatase 69 U/L (45-117); Aspartate Amino Transferase 14 U/L (0-37); Bilirubin,Total < 0.39 MG/DL (0.20-1.00); Blood Urea Nitrogen 22 MG/DL (7-18); Calcium 8.3 MG/DL (8.5-10.1); Carbon Dioxide 29 MMOL/L (21-32); Chloride 110 MMOL/L (98-107); Glucose 91 MG/DL (74-106); Osmolality,Calculated 290.7 MOS/KG (273-304); Potassium 3.8 MMOL/L (3.5-5.1); Sodium 145 MMOL/L (136-145); Total Protein 5.3 G/DL (6.4-8.2)
[2021-11-03 07:08] LABS: Platelet Estimate Normal
[2021-11-03 07:09] LABS: Anisocytosis 1+; Macrocytosis 1+
[2021-11-03] MEDS: CITALOPRAM 40 MG TABLET PO SCH (08:51)
[2021-11-03] MEDS: rOPINIRole 0.25 MG TABLET PO SCH ×3 (08:51→20:41)
[2021-11-03] MEDS: CARBIDOPA/LEVODOPA 25-100 MG TABLET PO SCH ×3 (08:51→18:00)
[2021-11-03] MEDS: MELOXICAM 7.5 MG TABLET PO SCH (08:51)
[2021-11-03] MEDS: amLODIPine 10 MG TABLET PO SCH (08:51)
[2021-11-03] MEDS: PANTOPRAZOLE 40 MG TABLET PO SCH (08:51)
[2021-11-03] MEDS: lamoTRIgine 100 MG TABLET PO SCH (08:51)
[2021-11-03] MEDS: DOCUSATE SODIUM 100 MG CAPSULE PO SCH ×2 (08:51→20:41)
[2021-11-03] MEDS: CHOLECALCIFEROL 1,000 UNIT TABLET PO SCH (08:51)
[2021-11-03] MEDS: POLYETHYLENE GLYCOL POWDER 17 GM PACK PO SCH (08:52)
[2021-11-03] MEDS: ENOXAPARIN 40 MG/0.4 ML SYRINGE SUBCUT SCH (08:52)
[2021-11-03] MEDS: ALPRAZolam 0.25 MG TABLET PO PRN ×2 (11:21→18:00)
[2021-11-03] MEDS: traZODone 50 MG TABLET PO PRN (20:41)
[2021-11-04] MEDS: lamoTRIgine 100 MG TABLET PO SCH (08:48)
[2021-11-04] MEDS: CITALOPRAM 40 MG TABLET PO SCH (08:49)
[2021-11-04] MEDS: MELOXICAM 7.5 MG TABLET PO SCH (08:49)
[2021-11-04] MEDS: amLODIPine 10 MG TABLET PO SCH (08:50)
[2021-11-04] MEDS: ENOXAPARIN 40 MG/0.4 ML SYRINGE SUBCUT SCH (08:50)
[2021-11-04] MEDS: rOPINIRole 0.25 MG TABLET PO SCH ×3 (08:50→21:05)
[2021-11-04] MEDS: DOCUSATE SODIUM 100 MG CAPSULE PO SCH ×2 (08:50→21:06)
[2021-11-04] MEDS: CHOLECALCIFEROL 1,000 UNIT TABLET PO SCH (08:50)
[2021-11-04] MEDS: CARBIDOPA/LEVODOPA 25-100 MG TABLET PO SCH ×3 (08:50→16:40)
[2021-11-04] MEDS: POLYETHYLENE GLYCOL POWDER 17 GM PACK PO SCH (08:52)
[2021-11-04] MEDS: ACETAMINOPHEN 325 MG TABLET PO PRN ×2 (08:52→21:07)
[2021-11-04] MEDS: ALPRAZolam 0.5 MG TABLET PO PRN (16:40)
[2021-11-04] MEDS: traZODone 50 MG TABLET PO PRN (21:06)
[2021-11-05 05:02] LABS: Basophils # 0.1 10*3/uL (0.0-0.2); Basophils % 0.9 % (0.0-0.8); Eosinophils # 0.2 10*3/uL (0.0-0.87); Eosinophils % 4.1 % (0.00-10.9); Hematocrit 35.2 VOL% (35.7-47.0); Hemoglobin 11.2 GM/DL (12.0-16.0); Immature Granulocytes % 0.5 %; Immature Granulocytes Absolute 0.03 #; Lymphocytes # 1.4 10*3/uL (1.4-4.0); Lymphocytes % 24.3 % (21.3-54.2); Mean Corpuscular HGB Conc 31.8 GM/DL (32-36); Mean Corpuscular Volume 100.6 FL (87-102); Mean Platelet Volume 10.5 FL (9.6-12.0); Monocytes # 0.7 10*3/uL (0.11-0.8); Neutrophils % 58.2 % (38.7-73.9); Platelet Count 198 T/CUMM (130-400); Red Cell Distribution Width 13.9 % (9.3-17.3); White Blood Count 5.9 T/CUMM (4-12)
[2021-11-05 05:19] LABS: Osmolality,Calculated 286.3 MOS/KG (273-304); Potassium 4.1 MMOL/L (3.5-5.1)
[2021-11-05] MEDS: rOPINIRole 0.25 MG TABLET PO SCH ×3 (09:04→21:20)
[2021-11-05] MEDS: POLYETHYLENE GLYCOL POWDER 17 GM PACK PO SCH (09:04)
[2021-11-05] MEDS: lamoTRIgine 100 MG TABLET PO SCH (09:04)
[2021-11-05] MEDS: DOCUSATE SODIUM 100 MG CAPSULE PO SCH ×2 (09:04→21:20)
[2021-11-05] MEDS: MELOXICAM 7.5 MG TABLET PO SCH (09:05)
[2021-11-05] MEDS: amLODIPine 10 MG TABLET PO SCH (09:05)
[2021-11-05] MEDS: CITALOPRAM 40 MG TABLET PO SCH (09:05)
[2021-11-05] MEDS: CARBIDOPA/LEVODOPA 25-100 MG TABLET PO SCH ×3 (09:05→17:21)
[2021-11-05] MEDS: CHOLECALCIFEROL 5,000 UNIT TABLET PO SCH (09:06)
[2021-11-05] MEDS: ENOXAPARIN 40 MG/0.4 ML SYRINGE SUBCUT SCH (09:08)
[2021-11-05] MEDS: LACTATED RINGERS 1,000 ML IV SCH (11:41)
[2021-11-05] MEDS: ACETAMINOPHEN 325 MG TABLET PO PRN ×2 (12:29→21:21)
[2021-11-05] MEDS: traZODone 50 MG TABLET PO PRN (21:20)
[2021-11-06] MEDS: LACTATED RINGERS 1,000 ML IV SCH ×3 (09:25→23:27)
[2021-11-06] MEDS: lamoTRIgine 100 MG TABLET PO SCH (10:26)
[2021-11-06] MEDS: DOCUSATE SODIUM 100 MG CAPSULE PO SCH ×2 (10:26→20:00)
[2021-11-06] MEDS: CITALOPRAM 40 MG TABLET PO SCH (10:27)
[2021-11-06] MEDS: CHOLECALCIFEROL 5,000 UNIT TABLET PO SCH (10:27)
[2021-11-06] MEDS: CARBIDOPA/LEVODOPA 25-100 MG TABLET PO SCH ×3 (10:27→17:05)
[2021-11-06] MEDS: rOPINIRole 0.25 MG TABLET PO SCH ×3 (10:27→20:00)
[2021-11-06] MEDS: ENOXAPARIN 40 MG/0.4 ML SYRINGE SUBCUT SCH (10:27)
[2021-11-06] MEDS: MELOXICAM 7.5 MG TABLET PO SCH (10:27)
[2021-11-06] MEDS: POLYETHYLENE GLYCOL POWDER 17 GM PACK PO SCH (10:28)
[2021-11-06] MEDS: amLODIPine 10 MG TABLET PO SCH (10:28)
[2021-11-06] MEDS: ALPRAZolam 0.5 MG TABLET PO PRN (12:48)
[2021-11-06] MEDS: ACETAMINOPHEN 325 MG TABLET PO PRN (12:49)
[2021-11-06] MEDS: traZODone 50 MG TABLET PO PRN (20:03)
[2021-11-07] MEDS: LACTATED RINGERS 1,000 ML IV SCH (01:00)
[2021-11-07 04:57] LABS: Basophils # 0.1 10*3/uL (0.0-0.2); Basophils % 0.8 % (0.0-0.8); Eosinophils # 0.2 10*3/uL (0.0-0.87); Eosinophils % 3.7 % (0.00-10.9); Hemoglobin 11.3 GM/DL (12.0-16.0); Immature Granulocytes % 0.5 %; Immature Granulocytes Absolute 0.03 #; Lymphocytes # 1.3 10*3/uL (1.4-4.0); Lymphocytes % 20.6 % (21.3-54.2); Mean Corpuscular HGB Conc 31.4 GM/DL (32-36); Mean Corpuscular Volume 101.4 FL (87-102); Mean Platelet Volume 10.5 FL (9.6-12.0); Monocytes # 0.9 10*3/uL (0.11-0.8); Monocytes % 13.7 % (1.7-12.7); Neutrophils % 60.7 % (38.7-73.9); Platelet Count 197 T/CUMM (130-400); Red Blood Count 3.55 MC/CUMM (3.8-5.5); Red Cell Distribution Width 13.9 % (9.3-17.3); White Blood Count 6.2 T/CUMM (4-12)
[2021-11-07 05:13] LABS: Calcium 9.5 MG/DL (8.5-10.1); Osmolality,Calculated 284.4 MOS/KG (273-304); Potassium 4.1 MMOL/L (3.5-5.1)
[2021-11-07 05:58] VITALS: BP 131/82
[2021-11-07] MEDS: ACETAMINOPHEN 325 MG TABLET PO PRN (07:38)
[2021-11-07] MEDS: MELOXICAM 7.5 MG TABLET PO SCH (08:41)
[2021-11-07] MEDS: CITALOPRAM 40 MG TABLET PO SCH (08:41)
[2021-11-07] MEDS: CARBIDOPA/LEVODOPA 25-100 MG TABLET PO SCH ×2 (08:41→12:14)
[2021-11-07] MEDS: rOPINIRole 0.25 MG TABLET PO SCH (08:41)
[2021-11-07] MEDS: POLYETHYLENE GLYCOL POWDER 17 GM PACK PO SCH (08:42)
[2021-11-07] MEDS: CHOLECALCIFEROL 5,000 UNIT TABLET PO SCH (08:42)
[2021-11-07] MEDS: lamoTRIgine 100 MG TABLET PO SCH (08:42)
[2021-11-07] MEDS: amLODIPine 10 MG TABLET PO SCH (08:44)
[2021-11-07] MEDS: DOCUSATE SODIUM 100 MG CAPSULE PO SCH (09:32)
[2021-11-07] MEDS: ENOXAPARIN 40 MG/0.4 ML SYRINGE SUBCUT SCH (09:35)
[2021-11-07] MEDS ORDERED: TUBERCULIN SKIN TEST 0.1 ML SYRINGE INTRADERM ONE (12:00)
== END 2021-11-07 13:52 | DRG 923 ==
LOC: EDBD → EDUNIT# → N.5E 22:28 → N.ED 22:28 → N.5E 11-01 02:17 → SUATTDRO 11-01 15:01
PROVIDERS: ADMIT Internal Medicine; ATTEND Internal Medicine